=== PATIENT | female | born 1950 | race Caucasian/White ===

== ENCOUNTER 2016-08-06 14:48 | Observation (INO) | payer BC ==
[~2016-08-06] VITALS: Ht 166.4 cm; Wt 79.4 kg
[2016-08-06 15:47] LABS: HEMOGLOBIN 13.7 gm/dl (12.3-15.3); RED BLOOD COUNT 4.7 M/UL (4.00-5.10); WHITE BLOOD COUNT 6.9 K/UL (4.5-11.0)
[2016-08-06 16:11] LABS: BUN/CREATININE RATIO 24 (0-10)
[2016-08-07] MEDS ORDERED: TRICOR 145 MG145 MG PO (01:25)
[2016-08-07] MEDS ORDERED: LOPRESSOR 25 MG25 MG PO ×2 (01:26→15:33)
[2016-08-07] MEDS ORDERED: ASPIR 8181 MG PO (01:26)
[2016-08-07] MEDS ORDERED: STIOLTO RESPIMAT INH (02:00)
[2016-08-07 02:40] LABS: HEMOGLOBIN 12.8 gm/dl (12.3-15.3); RED BLOOD COUNT 4.4 M/UL (4.00-5.10); WHITE BLOOD COUNT 7.6 K/UL (4.5-11.0)
[2016-08-07 02:48] LABS: BUN/CREATININE RATIO 27 (0-10)
[2016-08-07] MEDS ORDERED: FLONASE 0.05% N16 GM (15:32)
[2016-08-07] MEDS ORDERED: MULTAQ 400 MG400 MG PO (15:33)
[2016-08-07] MEDS ORDERED: ELIQUIS5 MG PO (15:33)
== END 2016-08-07 17:30 | disposition home or self-care (01) ==
LOC: ER1 14:48 → M/S 18:25 → ER1 18:25 → M/S 18:25 → ZEROF 18:25 → ER1 08-07 00:48 → M/S 08-07 00:48 → ZEROF 08-07 01:07 → M/S 08-07 01:07
PROVIDERS: Emergency Medicine; ADMIT Internal Medicine
DX: I48.0 Paroxysmal atrial fibrillation (principal); I08.1 Rheumatic disorders of both mitral and tricuspid valves; E83.42 Hypomagnesemia; J98.8 Other specified respiratory disorders; R07.9 Chest pain, unspecified; R74.8 Abnormal levels of other serum enzymes; E78.5 Hyperlipidemia, unspecified; F17.210 Nicotine dependence, cigarettes, uncomplicated; Z82.49 Family history of ischemic heart disease and other diseases of the circulatory system; Z88.0 Allergy status to penicillin; Z88.6 Allergy status to analgesic agent; Z79.01 Long term (current) use of anticoagulants; Z79.82 Long term (current) use of aspirin; Z79.899 Other long term (current) drug therapy; Z90.710 Acquired absence of both cervix and uterus; Z98.890 Other specified postprocedural states
CPT/HCPCS: ECHO; 36415; 71010; 78452; 80053; 80061; 81001; 82550; 82553; 83735; 83874; 84439; 84443; 84484; 85025; 85610; 85730; 87040; 87086; 93005; 93017; 93306; 94664; 96372; 96374; 96376; 99285; A9502; G0378; J1650; J2785; J7030

== ENCOUNTER 2021-01-11 02:12 | Inpatient (IN) | payer MEDICARE, OTHER ==
[~2021-01-11] VITALS: Ht 165.1 cm; Wt 82.6 kg
[~2021-01-11 02:12] MED LIST: ASPIR 8181 MG PO; HYDROCHLOROTH12.5 MG PO; HYDROCHLOROTHIA25 MG PO; LEVAQUIN500 MG PO; LOPRESSOR 25 MG25 MG PO; MULTAQ 400 MG400 MG PO; PROVENTIL HFA6.7 GM INH; STIOLTO RESPIMAT INH; TAMIFLU 75 MG C75 MG PO; TRICOR 145 MG145 MG PO
[2021-01-11 02:45] LABS: HEMOGLOBIN 12.9 gm/dl (12.3-15.3); RED BLOOD COUNT 4.44 M/UL (4.00-5.10); WHITE BLOOD COUNT 4.5 K/UL (4.5-11.0)
[2021-01-11 03:12] LABS: BUN/CREATININE RATIO 12 (0-10)
[2021-01-11] MEDS ORDERED: SINGULAIR10 MG PO (08:03)
[2021-01-11] MEDS ORDERED: PRAVASTATIN SOD20 MG PO (08:54)
[2021-01-11] MEDS ORDERED: COMBIVENT RESPIM4 GM INH (08:59)
[2021-01-11] MEDS ORDERED: OMEGA-3 ACID ETH1 GM PO (09:01)
[2021-01-11] MEDS ORDERED: GLUCOPHAGE 500500 MG PO (09:02)
[2021-01-11] MEDS ORDERED: POTASSIUM CHLO10 ME1 PO (09:27)
[2021-01-11] MEDS ORDERED: MELATONIN3 MG PO (11:44)
[2021-01-11] MEDS ORDERED: NEXIUM20 MG PO (11:45)
[2021-01-11] MEDS ORDERED: ZYRTEC10 MG PO (11:45)
[2021-01-11] MEDS ORDERED: FLONASE 0.05% N16 GM (15:32)
[2021-01-11] MEDS ORDERED: ELIQUIS5 MG PO (15:33)
[2021-01-12 06:28] LABS: RED BLOOD COUNT 4.24 M/UL (4.00-5.10)
[2021-01-12 06:30] LABS: WHITE BLOOD COUNT 5.7 K/UL (4.5-11.0)
[2021-01-12 07:35] LABS: BUN/CREATININE RATIO 14 (0-10)
[2021-01-13 02:58] LABS: HEMOGLOBIN 12.4 gm/dl (12.3-15.3); RED BLOOD COUNT 4.38 M/UL (4.00-5.10); WHITE BLOOD COUNT 5.3 K/UL (4.5-11.0)
[2021-01-13 03:27] LABS: BUN/CREATININE RATIO 14 (0-10)
[2021-01-14 05:41] LABS: RED BLOOD COUNT 4.27 M/UL (4.00-5.10)
[2021-01-14 05:51] LABS: WHITE BLOOD COUNT 3.8 K/UL (4.5-11.0)
[2021-01-14 05:59] LABS: BUN/CREATININE RATIO 14 (0-10)
[2021-01-14] MEDS ORDERED: DECADRON6 MG PO (14:50)
== END 2021-01-14 16:06 | disposition home or self-care (01) | DRG 177 ==
LOC: ER1 02:12 → CDU 04:42 → M/S 19:43
PROVIDERS: Internal Medicine; Physician Assistant; ADMIT Internal Medicine
PROC: XW033E5 Introduction of Remdesivir Anti-infective into Peripheral Vein, Percutaneous Approach, New Technology Group 5 (ICD-10-PCS; principal; 2021-01-11)
PROC: 3E0333Z Introduction of Anti-inflammatory into Peripheral Vein, Percutaneous Approach (ICD-10-PCS; 2021-01-11)
PROC: XW13325 Transfusion of Convalescent Plasma (Nonautologous) into Peripheral Vein, Percutaneous Approach, New Technology Group 5 (ICD-10-PCS; 2021-01-11)
PROC: 8E0ZXY6 Isolation (ICD-10-PCS; 2021-01-11)
DX: U07.1 COVID-19 (principal); J96.01 Acute respiratory failure with hypoxia; J12.82 Pneumonia due to coronavirus disease 2019; I48.20 Chronic atrial fibrillation, unspecified; E11.9 Type 2 diabetes mellitus without complications; E83.42 Hypomagnesemia; F17.210 Nicotine dependence, cigarettes, uncomplicated; E87.6 Hypokalemia; E78.00 Pure hypercholesterolemia, unspecified; E78.5 Hyperlipidemia, unspecified; I45.10 Unspecified right bundle-branch block; J44.9 Chronic obstructive pulmonary disease, unspecified; I48.0 Paroxysmal atrial fibrillation; G47.00 Insomnia, unspecified; Z79.01 Long term (current) use of anticoagulants; Z79.82 Long term (current) use of aspirin; Z90.710 Acquired absence of both cervix and uterus; Z88.0 Allergy status to penicillin; Z88.8 Allergy status to other drugs, medicaments and biological substances; Z82.49 Family history of ischemic heart disease and other diseases of the circulatory system; Z79.4 Long term (current) use of insulin
CPT/HCPCS: 36415; 36600; 71045; 80048; 80053; 82550; 82553; 82803; 82962; 83615; 83735; 83874; 83880; 84132; 84484; 85025; 85027; 86900; 86901; 86927; 94640; 94760; 94762; 96374; 96375; 99284; J1100; J1956; J3475; J7030; J7070; U0002

== ENCOUNTER → 2021-02-07 | Outpatient (CLI) | payer MEDICARE, OTHER ==
[~2021-02-07] MED LIST changes: +COMBIVENT RESPIM4 GM INH; +DECADRON6 MG PO; +ELIQUIS5 MG PO; +FLONASE 0.05% N16 GM; +GLUCOPHAGE 500500 MG PO; +MELATONIN3 MG PO; +NEXIUM20 MG PO; +OMEGA-3 ACID ETH1 GM PO; +POTASSIUM CHLO10 ME1 PO; +PRAVASTATIN SOD20 MG PO; +SINGULAIR10 MG PO; +ZYRTEC10 MG PO
== END ==
LOC: MAMO 11-17 09:00
DX: Z12.31 Encounter for screening mammogram for malignant neoplasm of breast (principal)
CPT/HCPCS: 77063; 77067

== ENCOUNTER → 2021-05-04 | Outpatient (CLI) | payer MEDICARE, OTHER | LOC: NM 13:22 | DX: R10.13 Epigastric pain (principal) | CPT/HCPCS: 78227; A9537 ==

== ENCOUNTER → 2021-05-09 | Outpatient (CLI) | payer MEDICARE, OTHER | LOC: MAMO 03-09 10:30 | DX: N64.59 Other signs and symptoms in breast (principal) | CPT/HCPCS: 76642-LT; 77065; G0279 ==

== ENCOUNTER → 2021-06-09 | Outpatient (CLI) | payer MEDICARE, OTHER ==
[2021-06-09 10:02] LABS: HEMOGLOBIN 12.9 gm/dl (12.3-15.3); RED BLOOD COUNT 4.51 M/UL (4.00-5.10)
[2021-06-10 03:09] LABS: CALCIUM, SERUM 9.7 mg/dL (8.7-10.3); CREATININE, SERUM 0.78 mg/dL (0.57-1.00)
== END ==
LOC: LAB 09:40
PROVIDERS: Surgery
DX: K82.8 Other specified diseases of gallbladder (principal); I45.10 Unspecified right bundle-branch block
CPT/HCPCS: 36415; 71046; 80048; 85025; 93005; U0003